=== PATIENT | female | born 1995 | race African-American/Black ===

== ENCOUNTER 2018-12-22 00:54 | Emergency (ER) | payer SELFPAY ==
[~2018-12-22] VITALS: Ht 160 cm; Wt 54.4 kg
--- OUTSIDE RECORDS SUMMARY | 2018-12-22 00:57 | XMS REPORT ---
Author Author Aniyah Marr e[employer] Address Unknown Phone Unavailable Care Team Providers Care Nursing Informatics Clinical Analyst Name Role Phone Aniyah Marr CP Unavailable Allergies, Adverse Reactions, Alerts Substance Reaction Event Type N.K.D.A. Info Not Available Non Drug Allergy Problems Problem Type Condition Code Onset Dates Condition Status Problem Screening for STD (sexually transmitted disease) Z11.3 Active Problem Screening for HIV (human immunodeficiency virus) Z11.4 Active Problem Encounter for gynecological examination (general) (routine) without abnormal findings Z01.419 Active Problem Encounter for counseling regarding contraception Z30.9 Active Assessment Depo contraception Z30.40 Active Problem Encounter for screening for malignant neoplasm of cervix Z12.4 Active Problem Depo contraception Z30.40 Active Medications Medication Code System Code Instructions Start Date End Date Status Dosage Depo-Provera [facility] [address]-41 150 MG/ML Intramuscular once November 29, 2017 Active 1 ml Results Name Result Date Reference Range Unit Abnormality Flag [id number] - RPR, Rfx Qn RPR/Confirm TP ----RPR Non Reactive 20171129 Non Reactive Urine hCG ----Control Line Present PRESENT 20171129 ----Positive/Negative NEGATIVE 20171129 Negative - [id number] - HIV 4th Generation ----HIV Screen 4th Generation wRfx Non Reactive 20171129 Non Reactive Summary Purpose eClinicalWorks Submission
--- OUTSIDE RECORDS SUMMARY | 2018-12-22 00:57 | XMS REPORT ---
Author Author Aniyah Marr [employer] Address Unknown Phone Unavailable Care Team Providers Care Forensic Sergeant Name Role Phone Aniyah Marr CP Unavailable Allergies, Adverse Reactions, Alerts Substance Reaction Event Type N.K.D.A. Info Not Available Non Drug Allergy Problems Problem Type Condition Code Onset Dates Condition Status Assessment Encounter for counseling regarding contraception Z30.9 Active Problem Encounter for counseling regarding contraception Z30.9 Active Medications No Known Medications Results No Known Results Summary Purpose eClinicalWorks Submission
--- OUTSIDE RECORDS SUMMARY | 2018-12-22 00:57 | XMS REPORT ---
Author Author [facility] Address Unknown Phone Unavailable Care Team Providers Care Carpenter General Name Role Phone Unavailable Unavailable Problems This patient has no known problems. Allergies, Adverse Reactions, Alerts This patient has no known allergies or adverse reactions. Medications This patient has no known medications. Encounters Start Date/Time End Date/Time Encounter Type Admission Type Attending Clinicians [facility] Facility Care Department Encounter ID 2018-12-04 11:38:00 2018-12-04 11:38:00 Emergency E [id number]
== END 2018-12-22 01:34 | disposition left against medical advice (07) ==
LOC: ER 00:54
DX: R10.2 Pelvic and perineal pain (principal)